=== PATIENT | female | born 1960 | race Caucasian/White ===

== ENCOUNTER 2021-01-16 08:44 | Outpatient (CLI) | payer BC ==
[2021-01-16 17:41] LABS: SARS-CoV-2 PCR by NAA Not Detected (NotDetected)
== END 2021-01-16 08:45 | disposition home or self-care (01) ==
LOC: LABBT 08:44
PROVIDERS: ATTEND Urology
DX: Z01.812 Encounter for preprocedural laboratory examination (principal); N20.0 Calculus of kidney; Z20.822 Contact with and (suspected) exposure to COVID-19
CPT/HCPCS: 87635; U0003; U0005

== ENCOUNTER 2021-01-21 09:48 | Day surgery (SDC) | payer BC ==
[2021-01-20 13:16] VITALS: BMI 42.4
[2021-01-21] MEDS ORDERED: Levofloxacin 500 mg/D5W 100 ml Premix Bag ONE (09:59)
[2021-01-21] MEDS ORDERED: Iothalamate Meglumine 60% 50 ML VIAL FS ONE ×2 (12:19→12:24)
[2021-01-21] MEDS ORDERED: Fentanyl 100 MCG/2 ML VIAL ONE (12:33)
[2021-01-21] MEDS ORDERED: Rocuronium Bromide 10 MG/ML (10ML VIAL) ONE (12:35)
[2021-01-21] MEDS ORDERED: Dexamethasone 20 MG/5 ML VIAL ONE (12:35)
[2021-01-21] MEDS ORDERED: Ondansetron PF 4 MG/2 ML Vial ONE ×2 (12:35→14:09)
[2021-01-21] MEDS ORDERED: PROPOFOL 200 MG/20 ML VIAL ONE (12:35)
[2021-01-21] MEDS ORDERED: Lidocaine 1% PF 5 ML VIAL ONE (12:35)
[2021-01-21] MEDS ORDERED: Ketorolac Tromethamine 30 MG/ML VIAL ONE (12:35)
[2021-01-21] MEDS ORDERED: Glycopyrrolate 0.2 MG/ML 5 ML SYRINGE ONE (12:35)
[2021-01-21] MEDS ORDERED: Oxybutynin 5 MG TAB ONE (14:14)
[2021-01-27 17:37] LABS: CA Oxalate Dihydrate 30 % (.); CA Oxalate Monohydrate 70 % (.); Color Brown (.); Stone Weight 66 mg (.)
== END 2021-01-21 15:42 | disposition home or self-care (01) ==
LOC: SDC 09:48
PROVIDERS: ATTEND Urology
PROC: 0T778DZ Dilation of Left Ureter with Intraluminal Device, Via Natural or Artificial Opening Endoscopic (ICD-10-PCS; principal; 2021-01-21)
PROC: 0TC48ZZ Extirpation of Matter from Left Kidney Pelvis, Via Natural or Artificial Opening Endoscopic (ICD-10-PCS; principal; 2021-01-21)
DX: N20.0 Calculus of kidney (principal); I10 Essential (primary) hypertension; E03.9 Hypothyroidism, unspecified; E11.9 Type 2 diabetes mellitus without complications; E78.5 Hyperlipidemia, unspecified; J45.909 Unspecified asthma, uncomplicated; K76.0 Fatty (change of) liver, not elsewhere classified; M19.90 Unspecified osteoarthritis, unspecified site; Z79.84 Long term (current) use of oral hypoglycemic drugs; Z79.899 Other long term (current) drug therapy; Z88.1 Allergy status to other antibiotic agents
CPT/HCPCS: 36416; 76000; 82365; 88300; J1100; J1885; J1956; J2405; J2704; J3010; Q9961